=== PATIENT | female | born 1990 | race African-American/Black ===

== ENCOUNTER 2016-07-11 16:54 | Emergency (ER) | payer MEDICAID ==
[~2016-07-11] VITALS: Ht 170.2 cm; Wt 75.0 kg
[2016-07-11 17:08] VITALS: BP 133/60; PULSE 70; RESP 15; TEMP 98.7; O2SAT 98
[2016-07-11] MEDS ORDERED: SODIUM CHLOR 0.9% 1000 ML INJ 1,000 ML IV ONE (17:12)
[2016-07-11] MEDS ORDERED: ONDANSETRON HCL 4 MG/2 ML VIAL IV PUSH ONE (17:15)
[2016-07-11] MEDS ORDERED: SODIUM CHLORIDE 0.9% FLUSH 10 ML FLUSH IVF PRN (17:15)
--- NOTE | 2016-07-11 17:23 | PD ---
HPI Chief Complaint: Psychiatric Symptoms Time Seen by Provider: 17:12 Travel History International Travel<30 days: No Contact w/Intl Traveler<30days: No Traveled to known affect area: No History of Present Illness HPI 25-year-old female with history of seizure according to patient's friend, presents to the ER today brought in by EMS for 2 episodes of seizure, one witness at the scene by bystanders and 1 witnessed by EMS with notable post ictal period. Patient apparently has been fairly agitated according to EMS initially. She currently is refusing to cooperate with us, not willing to give us any more information. Modifying Factors: None Associated Signs & Symptoms: Seizures 2 Risk Factors: Possible seizure history PFSH Social History Tobacco Use: No Allergies-Medications (Allergen,Severity, Reaction): Coded Allergies: UNOBTAINABLE (Unverified , 07/11/16) Review of Systems Except as stated in HPI: all other systems reviewed are Neg Physical Exam Narrative GENERAL: Well-developed young female who is mildly agitated but awake and able to answer questions. She is refusing to give me any further history. SKIN: Focused skin assessment warm/dry. HEAD: Atraumatic. Normocephalic. EYES: Pupils equal and round. No scleral icterus. No injection or drainage. ENT: No nasal bleeding or discharge. Mucous membranes pink and moist. NECK: Trachea midline. No JVD. CARDIOVASCULAR: Regular rate and rhythm. No murmur appreciated. RESPIRATORY: No accessory muscle use. Clear to auscultation. Breath sounds equal bilaterally. GASTROINTESTINAL: Abdomen soft, non-tender, nondistended. Hepatic and splenic margins not palpable. MUSCULOSKELETAL: No obvious deformities. No clubbing. No cyanosis. No edema. NEUROLOGICAL: Awake and alert. No obvious cranial nerve deficits. Motor grossly within normal limits. Normal speech. PSYCHIATRIC: Appropriate mood and affect; insight and judgment normal. Data Data Last Documented VS Vital Signs Date Time Temp Pulse Resp B/P Pulse Ox O2 Delivery O2 Flow Rate FiO2 07/11/16 17:08 98.7 70 15 133/60 98 Orders Complete Blood Count With Diff (07/11/16 17:12) Alcohol (Ethanol) (07/11/16 17:12) Drug Screen, Random Urine (07/11/16 17:12) Electrocardiogram (07/11/16 ) Blood Glucose (07/11/16 17:12) Ecg Monitoring (07/11/16 17:12) Iv Access Insert/Monitor (07/11/16 17:12) Oximetry (07/11/16 17:12) Comprehensive Metabolic Panel (07/11/16 17:12) Sodium Chlor 0.9% 1000 Ml Inj (Ns 1000 M (07/11/16 17:12) Sodium Chloride 0.9% Flush (Ns Flush) (07/11/16 17:15) Ed Urine Pregnancytest Poc (07/11/16 17:12) Ondansetron Inj (Zofran Inj) (07/11/16 17:15) Ct Brain W/O Iv Contrast(Rout) (07/11/16 17:23) Labs Laboratory Tests Test 07/11/16 17:15 White Blood Count 18.4 TH/MM3 Red Blood Count 4.29 MIL/MM3 Hemoglobin 13.7 GM/DL Hematocrit 40.9 % Mean Corpuscular Volume 95.3 FL Mean Corpuscular Hemoglobin 31.9 PG Mean Corpuscular Hemoglobin 33.5 % Concent Red Cell Distribution Width 14.8 % Platelet Count 300 TH/MM3 Mean Platelet Volume 7.5 FL Neutrophils (%) (Auto) 85.6 % Lymphocytes (%) (Auto) 9.9 % Monocytes (%) (Auto) 4.0 % Eosinophils (%) (Auto) 0.0 % Basophils (%) (Auto) 0.5 % Neutrophils # (Auto) 15.7 TH/MM3 Lymphocytes # (Auto) 1.8 TH/MM3 Monocytes # (Auto) 0.7 TH/MM3 Eosinophils # (Auto) 0.0 TH/MM3 Basophils # (Auto) 0.1 TH/MM3 CBC Comment DIFF FINAL Differential Comment Sodium Level 138 MEQ/L Potassium Level 3.8 MEQ/L Chloride Level 105 MEQ/L Carbon Dioxide Level 19.8 MEQ/L Anion Gap 13 MEQ/L Blood Urea Nitrogen 13 MG/DL Creatinine 1.20 MG/DL Estimat Glomerular Filtration 56 ML/MIN Rate Random Glucose 94 MG/DL Calcium Level 9.5 MG/DL Total Bilirubin 0.7 MG/DL Aspartate Amino Transf 13 U/L (AST/SGOT) Alanine Aminotransferase 13 U/L (ALT/SGPT) Alkaline Phosphatase 78 U/L Total Protein 7.8 GM/DL Albumin 4.4 GM/DL Ethyl Alcohol Level LESS THAN 3 MG/DL [facility] Medical Decision Making Medical Screen Exam Complete: Yes Emergency Medical Condition: Yes Medical Record Reviewed: Yes Interpretation(s) Laboratory Tests Test 07/11/16 17:15 White Blood Count 18.4 TH/MM3 (4.0-11.0) Neutrophils (%) (Auto) 85.6 % (16.0-70.0) Neutrophils # (Auto) 15.7 TH/MM3 (1.8-7.7) Carbon Dioxide Level 19.8 MEQ/L (21.0-32.0) Creatinine 1.20 MG/DL (0.50-1.00) Estimat Glomerular Filtration 56 ML/MIN (>89) Rate Aspartate Amino Transf 13 U/L (15-37) (AST/SGOT) Differential Diagnosis Withdrawal syndrome versus breakthrough seizure versus metabolic issues Narrative Course Patient apparently has had 2 witnessed seizures. Lab work did not show any signs of acute processes. CT has been ordered to rule out other acute processes. According to PD, she has been Hernandez acted. Physician Communication Physician Communication Case is signed out to Dr. Craft at [address] scan for further medical clearance. Diagnosis Primary Impression: Seizures Additional Impression: Altered mental status Condition: Stable Josselin Cyr MD Jul 11, 2016 17:23
[2016-07-11 17:49] LABS: AUTOMATED NEUTROPHIL # 15.7 TH/MM3 (1.8-7.7); BASOPHIL # 0.1 TH/MM3 (0-0.2); BASOPHIL % 0.5 % (0.0-2.0); HEMATOCRIT 40.9 % (35.0-46.0); HEMO FLAGS DIFF FINAL; LYMPH % 9.9 % (9.0-44.0); LYMPHOCYTE # 1.8 TH/MM3 (1.0-4.8); MEAN CELL VOLUME 95.3 FL (80.0-100.0); MEAN CORPUSCULAR HEMOGLOBIN 31.9 PG (27.0-34.0); MEAN CORPUSCULAR HGB CONC 33.5 % (32.0-36.0); NEUT % 85.6 % (16.0-70.0); PLATELET COUNT 300 TH/MM3 (150-450); RED BLOOD COUNT 4.29 MIL/MM3 (4.00-5.30); RED CELL DISTRIBUTION WIDTH 14.8 % (11.6-17.2); WHITE BLOOD COUNT 18.4 TH/MM3 (4.0-11.0)
[2016-07-11 18:01] LABS: ANION GAP 13 MEQ/L (5-15)
[2016-07-11 18:04] LABS: ALKALINE PHOSPHATASE 78 U/L (45-117); ALT (GPT) 13 U/L (10-53); AST (GOT) 13 U/L (15-37); BICARBONATE 19.8 MEQ/L (21.0-32.0); BLOOD UREA NITROGEN 13 MG/DL (7-18); CHLORIDE 105 MEQ/L (98-107); GLOMERULAR FILTRATION RATE 56 ML/MIN (>89); POTASSIUM 3.8 MEQ/L (3.5-5.1); SODIUM (NA) 138 MEQ/L (136-145); TOTAL BILIRUBIN ADULT 0.7 MG/DL (0.2-1.0)
[2016-07-11] MEDS ORDERED: HALOPERIDOL LACTATE 5 MG/ML AMP IM ONE (21:00)
[2016-07-11] MEDS ORDERED: ACETAMINOPHEN 325 MG TAB PO ONE (21:00)
[2016-07-11] MEDS ORDERED: LORazepam 2 MG/ML VIAL IM ONE (21:00)
[2016-07-11] MEDS ORDERED: diphenhydrAMINE HCL 50 MG/ML VIAL IM ONE (21:00)
--- NOTE | 2016-07-11 22:27 | RADRPT ---
EXAM DATE/TIME: 07/11/2016 22:08 [place] COMPARISON: No previous studies available for comparison. INDICATIONS : Seizure. RADIATION DOSE: 56.35 CTDIvol (mGy) MEDICAL HISTORY : Seizures. Sickle Cell disease. SURGICAL HISTORY : None. ENCOUNTER: Initial ACUITY: 1 day PAIN SCALE: Non-responsive LOCATION: cranial TECHNIQUE: Multiple contiguous axial images were obtained of the head. Using automated exposure control and adj ustment of the mA and/or kV according to patient size, radiation dose was kept as low as reasonably a chievable to obtain optimal diagnostic quality images. FINDINGS: There is no evidence for intracranial hemorrhage, mass effect, mass lesions, edema, or extra-axial fl uid collections. The visualized bony structures appear intact. The ventricles are normal size for t he patient's age. There are no signs of acute infarction for technique. CONCLUSION: Unremarkable study. Alberta Poe MD on July 11, 2016 at 22:25 Board Certified Radiologist. This report was verified electronically.
[2016-07-11] MEDS ORDERED: LEVE500 PO (23:00)
[2016-07-11] MEDS ORDERED: levETIRAcetam 500 MG TAB PO ONE (23:00)
--- NOTE | 2016-07-11 23:00 | PD ---
Physical Exam Date Seen by Provider: Jul 11, 2016 Time Seen by Provider: 22:56 Narrative 25-year-old female came to the emergency room brought by the biology research assistant after having a witnessed seizure and then waking up since and she wanted to kill herself. Patient was seen by the previous ER physician. Please refer to her notes full detailed history and physical. Patient has been very verbally abusive since she has been in the room. The staff is having a very difficult time taking care of her since she just wants to leave. She has been cursing constantly. Initially there was a question with the Hernandez act paperwork since it couldn't be located. However finally the PD was able to located and fax it over. She was medicated and CAT scan of her head was done. CAT scan is negative. I started her on 500 mg of Keppra by mouth. Labs are back and within normal limit. I we will medically clear her. She require psych screen. She has leukocytosis which I think is secondary to the seizure. Data Data Last Documented VS Vital Signs Date Time Temp Pulse Resp B/P Pulse Ox O2 Delivery O2 Flow Rate FiO2 07/12/16 10:53 78 16 110/70 99 Room Air 07/11/16 17:08 98.7 Orders Complete Blood Count With Diff (07/11/16 17:12) Alcohol (Ethanol) (07/11/16 17:12) Drug Screen, Random Urine (07/11/16 17:12) Blood Glucose (07/11/16 17:12) Ecg Monitoring (07/11/16 17:12) Iv Access Insert/Monitor (07/11/16 17:12) Oximetry (07/11/16 17:12) Comprehensive Metabolic Panel (07/11/16 17:12) Sodium Chlor 0.9% 1000 Ml Inj (Ns 1000 M (07/11/16 17:12) Sodium Chloride 0.9% Flush (Ns Flush) (07/11/16 17:15) Ed Urine Pregnancytest Poc (07/11/16 17:12) Ondansetron Inj (Zofran Inj) (07/11/16 17:15) Ct Brain W/O Iv Contrast(Rout) (07/11/16 17:23) Acetaminophen (Tylenol) (07/11/16 21:00) Haloperidol Inj (Haldol Inj) (07/11/16 21:00) Lorazepam Inj (Ativan Inj) (07/11/16 21:00) Diphenhydramine Inj (Benadryl Inj) (07/11/16 21:00) Levetiracetam (Keppra) (07/11/16 23:00) Labs Laboratory Tests Test 07/11/16 17:15 White Blood Count 18.4 TH/MM3 Red Blood Count 4.29 MIL/MM3 Hemoglobin 13.7 GM/DL Hematocrit 40.9 % Mean Corpuscular Volume 95.3 FL Mean Corpuscular Hemoglobin 31.9 PG Mean Corpuscular Hemoglobin 33.5 % Concent Red Cell Distribution Width 14.8 % Platelet Count 300 TH/MM3 Mean Platelet Volume 7.5 FL Neutrophils (%) (Auto) 85.6 % Lymphocytes (%) (Auto) 9.9 % Monocytes (%) (Auto) 4.0 % Eosinophils (%) (Auto) 0.0 % Basophils (%) (Auto) 0.5 % Neutrophils # (Auto) 15.7 TH/MM3 Lymphocytes # (Auto) 1.8 TH/MM3 Monocytes # (Auto) 0.7 TH/MM3 Eosinophils # (Auto) 0.0 TH/MM3 Basophils # (Auto) 0.1 TH/MM3 CBC Comment DIFF FINAL Differential Comment Sodium Level 138 MEQ/L Potassium Level 3.8 MEQ/L Chloride Level 105 MEQ/L Carbon Dioxide Level 19.8 MEQ/L Anion Gap 13 MEQ/L Blood Urea Nitrogen 13 MG/DL Creatinine 1.20 MG/DL Estimat Glomerular Filtration 56 ML/MIN Rate Random Glucose 94 MG/DL Calcium Level 9.5 MG/DL Total Bilirubin 0.7 MG/DL Aspartate Amino Transf 13 U/L (AST/SGOT) Alanine Aminotransferase 13 U/L (ALT/SGPT) Alkaline Phosphatase 78 U/L Total Protein 7.8 GM/DL Albumin 4.4 GM/DL Ethyl Alcohol Level LESS THAN 3 MG/DL MDM Supervised Visit with IMAN: No Diagnosis Primary Impression: Seizures Additional Impression: Altered mental status Qualified Code: R41.0 - Disorientation Med/Other Pt SpecificInfo: Prescription(s) given Scripts Levetiracetam (Keppra)500 Mg [id number] Mg PO BID #60 TAB Ref 0 Prov:Faye Craft MD 07/11/16 Condition: Faye Mak MD Jul 11, 2016 23:00
[2016-07-12 08:00] VITALS: BP 106/60; PULSE 99; RESP 16; O2SAT 100
[2016-07-12 09:53] LABS: AMPHETAMINE, URINE NEG (NEG); BARBITURATES, URINE NEG (NEG); COCAINE, URINE POS (NEG)
--- NOTE | 2016-07-12 10:30 | PD ---
History of Present Illness Chief Complaint: Psychiatric Symptoms Time Seen by Provider: 10:25 Travel History International Travel<30 Days: No Contact w/Intl Traveler<30days: No Known affected area: No Legal Status Legal Status: Hernandez Act Hernandez Act Signed By: Crys oRjas History of Present Illness: History of Present Illness HPI 25-year-old female with history of seizure according to patient's friend, no psychiatric history who presents to the ER today brought in by EMS for 2 episodes of seizure, one witness at the scene by bystanders and 1 witnessed by EMS with notable post ictal period. Patient comes in under a BA because it is reported that she was combative and that she refused medical treatment. Upon arrival to [facility] she was refusing to cooperate with us, not willing to give us any more information. Patient was monitored overnight and eventually she calmed down. Patietn with positive toxicology for cocaine and cannabinoids. EMR is reviewed. No previous contact with [facility] psychiatry dept. Patient seen in main ed. Awake, alert and oriented female who appears younger than stated age. She has short braided hair and is dressed in gym shirt and shorts. Fair hygiene and grooming . Engaging, verbal and cooperative. Speech is clear and logical, coherent and goal directed. There is no presured speech and no cory or hypomania. No psychosis and denies any hallucinatory process. No significant symptom of anxiety or depression. Denies any suicidal or homicidal ideation, intent or plan. She reports that she was confused after having a seizure and admits that she was agitated because she did not want to come to the hospital. Denies having any recollection of saying that she wants to and sates " I love my self". She is concerned because this is her second seizure and is usually in context of cocaine use. PFSH Past Medical History Seizures: Yes Sickle Cell Disease: Yes ?: Unknown Past Surgical History Surgical History: No Previous Surgery Psychiatric History Psychiatric History Hx Psychiatric Treatment: Denies any history History of Inpatient Treatment: No Guns or firearms in home: No Social History Single female originally from [facility]. Moved to [place] 2 months ago. Lives with her sister. 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 Hx Alcohol Use: No Hx Tobacco Use: No Hx Substance Use: Yes Substance Use Type: Marijuana, Cocaine Hx of Substance Use Treatment: No Family Psychiatric History None reported Allergies-Medications (Allergen,Severity, Reaction): Coded Allergies: No Known Allergies (Unverified , 07/11/16) Reported Meds & Prescriptions Reported Meds & Active Scripts Active Keppra (Levetiracetam) 500 Mg Tab 500 Mg PO BID Review of Systems Except as stated in HPI: all other systems reviewed are Neg Exam Alert: Yes [place]: Person (ox4) Mood: Calm Affect: Appropriate Speech: Clear, Logical Eye Contact: Normal Memory Intact: Comment (no impairment) Hallucinations: Other (negative) Delusions: No Suicidal: Ideation (deneis any) Homicidal: Ideation (denies any) Insight/Judgement Fair. Fair. MDM Medical Decision Making Medical Record Reviewed: Yes Assessment/Plan 25 year old with no previous psychiatric history who was placed under a BA after refusing medical treatment. Patient had a witnessed seizure. The patient denies any intent to harm self at this time and presents no criteria for the BA. She is requesting discharge. She is provided psychoeducation and advised to abstain from substances including coaine. Does not meet BA criteria. Cleared from psychiatric perspective for discharge. Orders Complete Blood Count With Diff (07/11/16 17:12) Alcohol (Ethanol) (07/11/16 17:12) Drug Screen, Random Urine (07/11/16 17:12) Electrocardiogram (07/11/16 ) Blood Glucose (07/11/16 17:12) Ecg Monitoring (07/11/16 17:12) Iv Access Insert/Monitor (07/11/16 17:12) Oximetry (07/11/16 17:12) Comprehensive Metabolic Panel (07/11/16 17:12) Sodium Chlor 0.9% 1000 Ml Inj (Ns 1000 M (07/11/16 17:12) Sodium Chloride 0.9% Flush (Ns Flush) (07/11/16 17:15) Ed Urine Pregnancytest Poc (07/11/16 17:12) Ondansetron Inj (Zofran Inj) (07/11/16 17:15) Ct Brain W/O Iv Contrast(Rout) (07/11/16 17:23) Acetaminophen (Tylenol) (07/11/16 21:00) Haloperidol Inj (Haldol Inj) (07/11/16 21:00) Lorazepam Inj (Ativan Inj) (07/11/16 21:00) Diphenhydramine Inj (Benadryl Inj) (07/11/16 21:00) Levetiracetam (Keppra) (07/11/16 23:00) Results Vital Signs Date Time Temp Pulse Resp B/P Pulse Ox O2 Delivery O2 Flow Rate FiO2 07/12/16 08:00 99 16 106/60 100 Room Air 07/11/16 17:08 98.7 70 15 133/60 98 Laboratory Tests Test 07/11/16 07/12/16 17:15 09:10 White Blood Count 18.4 Red Blood Count 4.29 Hemoglobin 13.7 Hematocrit 40.9 Mean Corpuscular Volume 95.3 Mean Corpuscular Hemoglobin 31.9 Mean Corpuscular Hemoglobin 33.5 Concent Red Cell Distribution Width 14.8 Platelet Count 300 Mean Platelet Volume 7.5 Neutrophils (%) (Auto) 85.6 Lymphocytes (%) (Auto) 9.9 Monocytes (%) (Auto) 4.0 Eosinophils (%) (Auto) 0.0 Basophils (%) (Auto) 0.5 Neutrophils # (Auto) 15.7 Lymphocytes # (Auto) 1.8 Monocytes # (Auto) 0.7 Eosinophils # (Auto) 0.0 Basophils # (Auto) 0.1 CBC Comment DIFF FINAL Differential Comment Sodium Level 138 Potassium Level 3.8 Chloride Level 105 Carbon Dioxide Level 19.8 Anion Gap 13 Blood Urea Nitrogen 13 Creatinine 1.20 Estimat Glomerular Filtration 56 Rate Random Glucose 94 Calcium Level 9.5 Total Bilirubin 0.7 Aspartate Amino Transf 13 (AST/SGOT) Alanine Aminotransferase 13 (ALT/SGPT) Alkaline Phosphatase 78 Total Protein 7.8 Albumin 4.4 Ethyl Alcohol Level LESS THAN 3 Urine Opiates Screen NEG Urine Barbiturates Screen NEG Urine Amphetamines Screen NEG Urine Benzodiazepines Screen NEG Urine Cocaine Screen POS Urine Cannabinoids Screen POS Diagnosis Primary Impression: Seizures Additional Impression: Cocaine abuse Ruled Out: Altered mental status Psychiatrically Cleared: Yes Med/ Other Pt Specific Info: No Meds Exist/No RX given Prescriptions Levetiracetam (Keppra)500 Mg Alp089 Mg PO BID #60 TAB Ref 0 Prov:Faye Craft MD 07/11/16 Disposition: 01 DISCHARGE HOME Condition: Stable Problem Qualifiers Josy Gill Jul 12, 2016 10:30
[2016-07-12 10:53] VITALS: BP 110/70; PULSE 78; RESP 16; O2SAT 99
== END 2016-07-12 10:56 | disposition home or self-care (01) ==
LOC: NEPC 16:54
DX: R56.9 Unspecified convulsions (principal); R41.82 Altered mental status, unspecified; F14.10 Cocaine abuse, uncomplicated; F12.10 Cannabis abuse, uncomplicated
CPT/HCPCS: 70450; 80053; 80307; 84703; 85025; 96374; 99285; J2405; J7030

== ENCOUNTER 2016-08-17 11:01 | Emergency (ER) | payer MEDICAID ==
[~2016-08-17 11:01] MED LIST: LEVE500 PO
[2016-08-17 11:02] VITALS: BP 112/65; PULSE 76; RESP 20; TEMP 98.8; O2SAT 100
--- NOTE | 2016-08-17 11:17 | PD ---
Physical Exam Date Seen by Provider: Aug 17, 2016 Time Seen by Provider: 11:27 Data Data Last Documented VS Vital Signs Date Time Temp Pulse Resp B/P Pulse Ox O2 Delivery O2 Flow Rate FiO2 08/17/16 11:02 98.8 76 20 112/65 100 Room Air MDM Supervised Visit with IMAN: No Narrative Course 25 YO with complaint of chronic seizure. Ringing in ear, dizziness today. Noncompliant with medications. Vitals reviewed. Patient awaiting bed placement. Francisca Cristina Aug 17, 2016 11:17
--- NOTE | 2016-08-17 12:26 | PD ---
HPI Chief Complaint: Medical Clearance Time Seen by Provider: 12:26 Travel History International Travel<30 days: No Contact w/Intl Traveler<30days: No Traveled to known affect area: No History of Present Illness HPI 25-year-old female with history of seizures presents to the emergency department for evaluation. Patient states this morning she felt like she was going to have a seizure. She states that her fingers became tingling and she had a ringing in her left ear. She states this has happened before she had a seizure in the past. She did not actually have a seizure today. States she has not been taking her antiseizure medication because she has not been told why she is having seizures. She states her last seizure was in June. She does report cocaine and marijuana use. Denies any chest tightness. No difficulty breathing. No recent illnesses, fever, chills. She has no other symptoms to report. PFSH Past Medical History Seizures: Yes Sickle Cell Disease: Yes Social History Alcohol Use: No Tobacco Use: No Substance Use: Yes Allergies-Medications (Allergen,Severity, Reaction): Coded Allergies: No Known Allergies (Unverified , 08/17/16) Reported Meds & Prescriptions Reported Meds & Active Scripts Active Keppra (Levetiracetam) 500 Mg Tab 500 Mg PO BID Keppra (Levetiracetam) 500 Mg Tab 500 Mg PO BID Review of Systems Except as stated in HPI: all other systems reviewed are Neg Physical Exam Narrative GENERAL: Well-nourished female patient, sitting up in bed, in no acute distress. SKIN: Focused skin assessment warm/dry. HEAD: Atraumatic. Normocephalic. EYES: Pupils equal and round. No scleral icterus. No injection or drainage. ENT: No nasal bleeding or discharge. Mucous membranes pink and moist. NECK: Trachea midline. No JVD. CARDIOVASCULAR: Regular rate and rhythm. No murmur appreciated. RESPIRATORY: No accessory muscle use. Clear to auscultation. Breath sounds equal bilaterally. GASTROINTESTINAL: Abdomen soft, non-tender, nondistended. Hepatic and splenic margins not palpable. MUSCULOSKELETAL: No obvious deformities. No clubbing. No cyanosis. No edema. NEUROLOGICAL: Awake and alert. No obvious cranial nerve deficits. Motor grossly within normal limits. Normal speech. Data Data Last Documented VS Vital Signs Date Time Temp Pulse Resp B/P Pulse Ox O2 Delivery O2 Flow Rate FiO2 08/17/16 12:50 97.8 76 16 110/67 99 08/17/16 11:02 Room Air MDM Medical Decision Making Medical Screen Exam Complete: Yes Emergency Medical Condition: Yes Medical Record Reviewed: Yes Differential Diagnosis Medication noncompliance versus seizure versus pseudoseizure versus electrolyte abnormality versus substance abuse Narrative Course 25-year-old female presents to the emergency department for evaluation because she felt like she was going to have a seizure this morning. Patient is noncompliant with her Keppra regimen. She is not having any seizure activity here and neuro exam is nonfocal. I discussed the patient with my attending physician. Patient will be given a prescription for her Keppra. She is encouraged to stop using illegal drugs. She is drunk encouraged to seek neurology follow-up and take her antiseizure medication. She agrees to return immediately with any acute worsening symptoms. Diagnosis Primary Impression: Noncompliance with medication regimen Additional Impressions: Cocaine abuse History of seizures Referrals: Neurologist Primary Care Physician Patient Instructions: General Instructions, Recurrent Seizures in Adults (DC) Additional Instructions: Follow-up with your primary care provider Seek neurology evaluation Stop using cocaine as this will decrease your seizure threshold, increasing her likelihood to have seizures Take medication as prescribed Return immediately to the emergency department with any acute worsening symptoms Med/Other Pt SpecificInfo: Prescription(s) given Scripts Levetiracetam (Keppra)500 Mg [id number] Mg PO BID #60 TAB Ref 0 Prov:Izabella Daily 08/17/16 Disposition: 01 DISCHARGE HOME Condition: Stable Izabella Daily Aug 17, 2016 12:26
[2016-08-17] MEDS ORDERED: LEVE500 PO (12:41)
[2016-08-17 12:50] VITALS: BP 110/67; TEMP 97.8
== END 2016-08-17 12:50 | disposition home or self-care (01) ==
LOC: NEPC 11:01
DX: R56.9 Unspecified convulsions (principal); F14.10 Cocaine abuse, uncomplicated; D57.1 Sickle-cell disease without crisis; Z91.14 Patient's other noncompliance with medication regimen
CPT/HCPCS: 99283

== ENCOUNTER 2016-11-02 21:10 | Emergency (ER) | payer SELFPAY ==
[~2016-11-02] VITALS: Ht 175.3 cm; Wt 90.9 kg
[2016-11-02 21:18] VITALS: BP 130/77; PULSE 68; RESP 18; TEMP 97.4; O2SAT 99
[2016-11-02] MEDS ORDERED: SODIUM CHLORIDE 0.9% FLUSH 10 ML FLUSH IVF PRN (21:30)
[2016-11-02] MEDS ORDERED: LORazepam 2 MG/ML VIAL IVS ONE (21:30)
[2016-11-02] MEDS ORDERED: LEVE500 PO (21:42)
--- NOTE | 2016-11-02 21:43 | PD ---
HPI . Seizure Chief Complaint: Seizure Time Seen by Provider: 21:18 Travel History International Travel<30 days: No Contact w/Intl Traveler<30days: No Traveled to known affect area: No History of Present Illness HPI This patient presents by private vehicle status post a witnessed seizure at home. History is obtained from the patient and a female friend or family member. She reportedly had a seizure earlier today which was followed by a postictal period. The patient then returned to her baseline level of consciousness. Later in the evening, she was standing up talking on the phone when she had another seizure. This time, she fell backward and struck the back of her head on a hard floor. The seizure was followed by a postictal period. Following this, she was complaining with head and neck pain. She was subsequently brought to the hospital for further evaluation. Patient reports a known history of seizures. She had the onset of seizures and about June of this year. She states that the etiology of the seizures is unknown. She has had about 4 or 5 so far. She has been prescribed Keppra in the past but is noncompliant with the Keppra because of financial reasons. The patient reports no known modifying factors. She states that her neck pain is 10/10. PFSH Past Medical History Diminished Hearing: No Neurologic: Yes (SEIZURE) Seizures: Yes Sickle Cell Disease: Yes Tetanus Vaccination: > 5 Years ?: Not LMP: 10/19/2016 : 0 Para: 0 Past Surgical History Surgical History: No Previous Surgery Social History Alcohol Use: Yes (WEEKLY) Tobacco Use: Yes (1ppd) Substance Use: Yes (COCAINE, marijuana everyday) Allergies-Medications (Allergen,Severity, Reaction): Coded Allergies: No Known Allergies (Unverified , 08/17/16) Reported Meds & Prescriptions Reported Meds & Active Scripts Active Keppra (Levetiracetam) 500 Mg Tab 500 Mg PO BID Review of Systems Except as stated in HPI: all other systems reviewed are Neg HENT: Positive: Headaches, Neck Pain Neurologic: Positive: Seizures, No: Focal Abnormalities Physical Exam Narrative GENERAL: Awake and alert and in no acute distress. SKIN: Warm and dry. HEAD: Atraumatic. Normocephalic. EYES: Pupils equal and round. Extraocular movements are intact. NECK: Trachea midline. C-spine is immobilized in a [place] collar pending CT. CARDIOVASCULAR: Regular rate and rhythm. RESPIRATORY: No accessory muscle use. MUSCULOSKELETAL: No obvious deformities. No edema. NEUROLOGICAL: Awake and alert. No obvious cranial nerve deficits. Motor grossly within normal limits. Normal speech. PSYCHIATRIC: Appropriate mood and affect; insight and judgment normal. Data Data Last Documented VS Vital Signs Date Time Temp Pulse Resp B/P Pulse Ox O2 Delivery O2 Flow Rate FiO2 11/02/16 21:18 97.4 68 18 130/[address] Brain W/O Iv Contrast(Rout) (11/02/16 ) Iv Access Insert/Monitor (11/02/16 21:18) Sodium Chloride 0.9% Flush (Ns Flush) (11/02/16 21:30) Lorazepam Inj (Ativan Inj) (11/02/16 21:30) Ct Cerv Spine W/O Contrast (11/02/16 21:18) Drug Screen, Random Urine (11/02/16 21:23) Electrocardiogram (11/02/16:17) Levetiracetam 1000 Mg Inj (Keppra 1000 M (11/02/16 21:45) Ondansetron Inj (Zofran Inj) (11/02/16 22:00) Ketorolac Inj (Toradol Inj) (11/02/16 23:45) Labs Laboratory Tests Test 11/02/16 23:30 Urine Opiates Screen NEG Urine Barbiturates Screen NEG Urine Amphetamines Screen NEG Urine Benzodiazepines Screen NEG Urine Cocaine Screen NEG Urine Cannabinoids Screen POS MDM Medical Decision Making Medical Screen Exam Complete: Yes Emergency Medical Condition: Yes Medical Record Reviewed: Yes (this patient has been seen here a couple times in the recent past for seizures. She has had drug screens positive for cocaine and marijuana.) Differential Diagnosis Differential diagnosis of seizure includes but is not limited to epilepsy, electrolyte abnormality, previous stroke, closed head injury Narrative Course This patient presents status post 2 seizures today at home. She suffered a blow to the head with resultant head and neck pain with the last seizure. CT of her head and neck is pending. She has been prescribed Keppra in the past for seizures but is noncompliant because of financial reasons. I will load her with IV Keppra. Last Impressions Cervical Spine CT 11/02/162117 Signed Impressions: Service Date/Time: Wednesday, November 02, 2016 21:43 - CONCLUSION: Unremarkable study. Alberta Poe MD Head CT 11/02/16 0000 Signed Impressions: Service Date/Time: Friday, November 02, 2016 21:43 - CONCLUSION: Unremarkable study. Alberta Poe MD No further seizure activity in the emergency department. She is still complaining with posterior head pain Diagnosis Primary Impression: Seizures Additional Impressions: Noncompliance with medication regimen Scalp contusion Qualified Code: S00.03XA - Contusion of scalp, initial encounter Patient Instructions: General Instructions, Recurrent Seizures in Adults (DC) Med/Other Pt SpecificInfo: Prescription(s) given Scripts Levetiracetam (Keppra)500 Mg Cbx224 Mg PO BID #60 TAB Ref 0 Prov:Luna Desir MD 11/02/16 Disposition: 01 DISCHARGE HOME Condition: Stable Luna Desir MD Nov 02, 2016 21:43
[2016-11-02] MEDS ORDERED: levETIRAcetam 1000 MG INJ 100 ML IV ONE (21:45)
--- NOTE | 2016-11-02 21:52 | RADRPT ---
EXAM DATE/TIME: 11/02/2016 21:43 [facility] COMPARISON: CT BRAIN W/O CONTRAST, July 11, 2016, 22:08. INDICATIONS : Trauma, seizure and then hit head. Head and neck pain. RADIATION DOSE: 37.83 CTDIvol (mGy) MEDICAL HISTORY : Seizures. Substance abuse. SURGICAL HISTORY : None. ENCOUNTER: Initial ACUITY: 1 day PAIN SCALE: 5/10 LOCATION: cranial TECHNIQUE: Multiple contiguous axial images were obtained of the head. Using automated exposure control and adj ustment of the mA and/or kV according to patient size, radiation dose was kept as low as reasonably a chievable to obtain optimal diagnostic quality images. DICOM format image data is available electro nically for review and comparison. FINDINGS: There is no evidence for intracranial hemorrhage, mass effect, mass lesions, edema, or extra-axial fl uid collections. The visualized bony structures appear intact. The ventricles are normal size for t he patient's age. There are no signs of acute infarction for technique. CONCLUSION: Unremarkable study. Alberta Poe MD on November 02, 2016 at 21:50 Board Certified Radiologist. This report was verified electronically.
[2016-11-02] MEDS ORDERED: ONDANSETRON HCL 4 MG/2 ML VIAL IV PUSH ONE (22:00)
--- NOTE | 2016-11-02 22:07 | RADRPT ---
EXAM DATE/TIME: 11/02/2016 21:43 [facility] COMPARISON: No previous studies available for comparison. INDICATIONS : Trauma, seizure and then hit head. Head and neck pain. RADIATION DOSE: 21.12 CTDIvol (mGy) MEDICAL HISTORY : Seizures. Substance abuse. SURGICAL HISTORY : None. ENCOUNTER: Initial ACUITY: 1 day PAIN SCALE: 6/10 LOCATION: neck TECHNIQUE: Volumetric scanning of the cervical spine was performed. Multiplanar reconstructions in the sagittal, coronal and oblique axial planes were performed. Using automated exposure control and adjustment o f the mA and/or kV according to patient size, radiation dose was kept as low as reasonably achievable to obtain optimal diagnostic quality images. DICOM format image data is available electronically f or review and comparison. FINDINGS: No significant subluxation or soft tissue swelling is seen. No definite fracture is seen for techniqu e. C2-C3: No appreciable compromised to the thecal sac, exiting nerve roots are seen. The neural joanie kelvin are patent bilaterally. No appreciable thecal sac stenosis is seen. C3-C4: No appreciable compromised to the thecal sac, exiting nerve roots are seen. The neural joanie kelvin are patent bilaterally. No appreciable thecal sac stenosis is seen. C4-C5: No appreciable compromised to the thecal sac, exiting nerve roots are seen. The neural joanie kelvin are patent bilaterally. No appreciable thecal sac stenosis is seen. C5-C6: No appreciable compromised to the thecal sac, exiting nerve roots are seen. The neural joanie kelvin are patent bilaterally. No appreciable thecal sac stenosis is seen.C6-C7: No appreciable compro mised to the thecal sac, exiting nerve roots are seen. The neural foramina are patent bilaterally. No appreciable thecal sac stenosis is seen. C7-T1: No appreciable compromised to the thecal sac, exiting nerve roots are seen. The neural joanie kelvin are patent bilaterally. No appreciable thecal sac stenosis is seen CONCLUSION: Unremarkable study. Alberta Poe MD on November 02, 2016 at 22:03 Board Certified Radiologist. This report was verified electronically.
[2016-11-02] MEDS ORDERED: KETOROLAC TROMETHAMINE 30 MG/ML (IVP) VIAL IV PUSH ONE (23:45)
--- NOTE | 2016-11-03 15:56 | EKG ---
Date Performed: 11/02/2016 Time Performed: 21:17:44 PTAGE: 25 years EKG: Sinus rhythm NORMAL ECG NO PREVIOUS TRACING DOCTOR: Kyrie Monk Interpretating Date/Time 11/03/2016 15:56:00
== END 2016-11-03 00:40 | disposition home or self-care (01) ==
LOC: NEPE 21:10
DX: R56.9 Unspecified convulsions (principal); S00.03XA Contusion of scalp, initial encounter; M54.2 Cervicalgia; Z91.14 Patient's other noncompliance with medication regimen; F17.200 Nicotine dependence, unspecified, uncomplicated; Z86.2 Personal history of diseases of the blood and blood-forming organs and certain disorders involving the immune mechanism; Z86.69 Personal history of other diseases of the nervous system and sense organs; W22.09XA Striking against other stationary object, initial encounter
CPT/HCPCS: 70450; 72125; 80307; 93005; 96365; 96375; 99285; J1885; J1953; J2060; J2405

== ENCOUNTER 2016-11-18 11:20 | Emergency (ER) | payer SELFPAY ==
[~2016-11-18] VITALS: Ht 175.3 cm; Wt 73.0 kg
[2016-11-18 11:21] VITALS: BP 124/76; PULSE 88; RESP 16; TEMP 98.8; O2SAT 99
[2016-11-18] MEDS ORDERED: levETIRAcetam 1000 MG INJ 100 ML IV ONE (11:45)
--- NOTE | 2016-11-18 11:54 | PD ---
HPI Chief Complaint: Seizure Time Seen by Provider: 11:35 Travel History International Travel<30 days: No Contact w/Intl Traveler<30days: No Traveled to known affect area: No History of Present Illness HPI 26yo F with PMH of seizure who is noncompliant with her seizure medications here with c/o possible seizure today. Pt was found by sister on the floor and denies any complaints currently. Pt has no signs of trauma on exam and is AAOx3. This is the fourth time she has been here for seizure secondary to noncompliance to keppra. Pt states she never filled her prescription because she has no money. Denies any fever, chest pain, visual changes, sob, n/v, abdominal pain, weakness or numbness. PFSH Past Medical History Diminished Hearing: No Neurologic: Yes (SEIZURE) Seizures: Yes (PATIENT NON-COMPLIANT WITH MEDICATIONS DUE TO NO INSURANCE/MONEY ) Sickle Cell Disease: Yes ?: Not LMP: 11/18/16 : 0 Para: 0 Past Surgical History Surgical History: No Previous Surgery Social History Alcohol Use: Yes (WEEKLY) Tobacco Use: Yes (1/2 PPD) Substance Use: Yes (COCAINE, marijuana everyday) Allergies-Medications (Allergen,Severity, Reaction): Coded Allergies: No Known Allergies (Unverified , 08/17/16) Reported Meds & Prescriptions Reported Meds & Active Scripts Active Keppra (Levetiracetam) 500 Mg Tab 500 Mg PO BID Review of Systems Except as stated in HPI: all other systems reviewed are Neg Physical Exam Narrative GENERAL: 26yo F not in distress. SKIN: Focused skin assessment warm/dry. HEAD: Atraumatic. Normocephalic. EYES: Pupils equal and round at 4mm bilaterally. EOMI. ENT: No nasal bleeding or discharge. No septal hematoma. No hemotympanum. NECK: No midline ttp. CARDIOVASCULAR: Regular rate and rhythm. No murmur appreciated. RESPIRATORY: No accessory muscle use. Clear to auscultation. Breath sounds equal bilaterally. GASTROINTESTINAL: Abdomen soft, non-tender, nondistended. No rebound tenderness or guarding. MUSCULOSKELETAL: No obvious deformities. No clubbing. No cyanosis. No edema. NEUROLOGICAL: Awake and alert. No obvious cranial nerve deficits. Motor grossly within normal limits. Normal speech. PSYCHIATRIC: Appropriate mood and affect; insight and judgment normal. Data Data Last Documented VS Vital Signs Date Time Temp Pulse Resp B/P (MAP) Pulse Ox O2 Delivery O2 Flow Rate FiO2 11/18/16 13:37 11/18/16 11:35 Room Air 11/18/16 11:21 98.8 88 16 99 Orders Orders Complete Blood Count With Diff (11/18/16 11:43) Basic Metabolic Panel (Bmp) (11/18/16 11:43) Magnesium (Mg) (11/18/16 11:43) Ed Urine Pregnancytest Poc (11/18/16 11:43) Levetiracetam 1000 Mg Inj (Keppra 1000 M (11/18/16 11:45) Mandatory Outpatient Referral (11/18/16 13:16) Labs Laboratory Tests Test 11/18/16 11:55 White Blood Count 9.6 TH/MM3 Red Blood Count 4.11 MIL/MM3 Hemoglobin 13.5 GM/DL Hematocrit 39.5 % Mean Corpuscular Volume 96.1 FL Mean Corpuscular Hemoglobin 32.9 PG Mean Corpuscular Hemoglobin Concent 34.3 % Red Cell Distribution Width 14.8 % Platelet Count 250 TH/MM3 Mean Platelet Volume 7.2 FL Neutrophils (%) (Auto) 65.2 % Lymphocytes (%) (Auto) 24.1 % Monocytes (%) (Auto) 7.4 % Eosinophils (%) (Auto) 2.5 % Basophils (%) (Auto) 0.8 % Neutrophils # (Auto) 6.2 TH/MM3 Lymphocytes # (Auto) 2.3 TH/MM3 Monocytes # (Auto) 0.7 TH/MM3 Eosinophils # (Auto) 0.2 TH/MM3 Basophils # (Auto) 0.1 TH/MM3 CBC Comment DIFF FINAL Differential Comment Blood Urea Nitrogen 7 MG/DL Creatinine 0.83 MG/DL Random Glucose 79 MG/DL Calcium Level 8.5 MG/DL Magnesium Level 2.1 MG/DL Sodium Level 141 MEQ/L Potassium Level 4.4 MEQ/L Chloride Level 111 MEQ/L Carbon Dioxide Level 21.5 MEQ/L Anion Gap 9 MEQ/L Estimat Glomerular Filtration Rate 102 ML/MIN MDM Medical Decision Making Medical Screen Exam Complete: Yes Emergency Medical Condition: Yes Differential Diagnosis Seizure secondary to noncompliance vs. electrolyte abnormality Narrative Course 26yo F with history of seizure here with probable episode of seizure today. This is the fourth time pt has been evaluated for this at [place] so I discussed with case management and she sent someone over from patient assistance to give her information about discounts on medications. Labs reviewed, no leukocytosis. BMP unremarkable. Magnesium normal. Pt given keppra 1000mg IV. Pt has been observed in the ED with no episodes of seizure. Pt has no overt signs of trauma and has a normal neurologic exam. She is at baseline mental status and has had multiple CT scans before. Do not feel CT scan is indicated at this time. Will do mandatory referral to neurology. Return precautions given. Diagnosis Primary Impression: Seizures Referrals: Mireille Cha MD Patient Instructions: General Instructions Departure Forms: Tests/Procedures Additional Instructions: Please wait for case management to call for neurology appointment. Return to the ED if symptoms worsen. Med/Other Pt SpecificInfo: Prescription(s) given Scripts Levetiracetam (Keppra) 500 Mg Tab 500 MG PO BID for Control Seizures, #60 TAB 0 Refills Prov: Katie Collazo DO 11/18/16 Disposition: 01 DISCHARGE HOME Condition: Stable Katie Collazo DO Nov 18, 2016 11:54
[2016-11-18 12:05] LABS: AUTOMATED NEUTROPHIL # 6.2 TH/MM3 (1.8-7.7); BASOPHIL # 0.1 TH/MM3 (0-0.2); BASOPHIL % 0.8 % (0.0-2.0); EOSINOPHIL # 0.2 TH/MM3 (0-0.4); EOSINOPHIL % 2.5 % (0.0-4.0); HEMATOCRIT 39.5 % (35.0-46.0); HEMO FLAGS DIFF FINAL; LYMPH % 24.1 % (9.0-44.0); LYMPHOCYTE # 2.3 TH/MM3 (1.0-4.8); MEAN CELL VOLUME 96.1 FL (80.0-100.0); MEAN CORPUSCULAR HEMOGLOBIN 32.9 PG (27.0-34.0); MEAN CORPUSCULAR HGB CONC 34.3 % (32.0-36.0); MONO % 7.4 % (0.0-8.0); NEUT % 65.2 % (16.0-70.0); PLATELET COUNT 250 TH/MM3 (150-450); RED BLOOD COUNT 4.11 MIL/MM3 (4.00-5.30); RED CELL DISTRIBUTION WIDTH 14.8 % (11.6-17.2); WHITE BLOOD COUNT 9.6 TH/MM3 (4.0-11.0)
[2016-11-18 12:31] LABS: BICARBONATE 21.5 MEQ/L (21.0-32.0); MAGNESIUM 2.1 MG/DL (1.5-2.5); POTASSIUM 4.4 MEQ/L (3.5-5.1)
[2016-11-18] MEDS ORDERED: LEVE500 PO (13:16)
== END 2016-11-18 13:39 | disposition home or self-care (01) ==
LOC: NEPC 11:20
DX: R56.9 Unspecified convulsions (principal); F17.200 Nicotine dependence, unspecified, uncomplicated; Z91.14 Patient's other noncompliance with medication regimen
CPT/HCPCS: 80048; 83735; 84703; 85025; 96365; 99284; J1953